=== PATIENT | female | born 1935 ===

== ENCOUNTER 2017-08-23 08:38 | Emergency (ER) | payer MEDICARE, MEDICAID ==
[2017-08-23 08:58] VITALS: TEMP 98.2; O2SAT 98; BMI 23.9
[2017-08-23] MEDS ORDERED: Naproxen 550 mg Tab PO STA (09:36)
[2017-08-23] MEDS ORDERED: Tmp-Smz 800 mg-160 mg DS Tab PO STA (09:36)
[2017-08-23 09:44] VITALS: BP 162/84; PULSE 85; RESP 16
[2017-08-23] MEDS ORDERED: Naproxen 550 mg Tab PO ONE (09:51)
--- NOTE | 2017-08-23 09:55 | C.PDOC ---
History Of Present Illness 81 year old female presents to the ER with a complaint of left inner thigh swelling and pain for the past 2 weeks with discharge. Denies fever or chills. Time Seen by Provider: 08/23/17 09:13 Chief Complaint (Nursing): Female Genitourinary History Per: Patient History/Exam Limitations: no limitations Onset/Duration Of Symptoms: Days Current Symptoms Are (Timing): Still Present Location Of Injury: Left: Thigh Quality Of Symptoms: Painful, Swollen, Draining Recent travel outside of the [place]: No Past Medical History Reviewed: Historical Data, Nursing Documentation, Vital Signs Vital Signs: Last Vital Signs Temp 98.2 F 08/23/17 08:52 Pulse 85 08/23/17 09:43 Resp 16 08/23/17 09:43 BP 162/84 H 08/23/17 09:43 Pulse Ox 98 08/23/17 10:55 - Medical History PMH: HTN Family History: States: Unknown Family Hx - Social History Hx Tobacco Use: No Hx Alcohol Use: No Hx Substance Use: No - Immunization History Hx Tetanus Toxoid Vaccination: Yes Hx Influenza Vaccination: Yes Hx Pneumococcal Vaccination: Yes Review Of Systems Except As Marked, All Systems Reviewed And Found Negative. Skin: Positive for: Other (Left inner thigh swelling, pain, and drainage) Physical Exam - Physical Exam Appears: Non-toxic, Other (Comfortable) Skin: Warm, Dry Head: Atraumatic, Normacephalic Eye(s): bilateral: Normal Inspection Oral Mucosa: Moist Chest: Symmetrical, No Tenderness Cardiovascular: Rhythm Regular Respiratory: Normal Breath Sounds, No Rales, No Rhonchi, No Wheezing Gastrointestinal/Abdominal: Soft, No Tenderness Extremity: Other (Left proximal medial thigh/gluteal area with 2cm fluctuant abscess with pustule and purulent drainage, tenderness and mild erythema) Neurological/Psych: Oriented x3, Normal Speech ED Course And Treatment O2 Sat by Pulse Oximetry: 98 (Room air) Pulse Ox Interpretation: Normal Progress Note: Naproxen, bactrim, and keflex administered. Patient advised to apply warm compress and follow up with PMD or return if symptoms worsen. Disposition Counseled Patient/Family Regarding: Diagnosis, Need For Followup, Rx Given - Disposition Referrals: Shan Pineda MD [Staff Provider] - Disposition: HOME/ ROUTINE Disposition Time: 10:50 Condition: STABLE Additional Instructions: FOLLOW UP WITH YOUR DOCTOR IN 1-2 DAYS USE MEDICATIONS DIRECTED RETURN TO EMERGENCY ROOM IF SYMPTOMS WORSEN SEGUIMIENTO CON ALMAZAN MDICO EN 1-2 BURGESS USE MEDICAMENTOS SEGN LO INDICADO REGRESE AL RAZA DE EMERGENCIA SI LOS SNTOMAS EMPEORAN Prescriptions: Cephalexin [Keflex] 500 mg PO BID #14 capsule Naproxen 375 mg PO BID PRN #20 tablet PRN Reason: pain Sulfamethoxazole/Trimethoprim [Bactrim DS 800 mg-160 mg] 1 tab PO BID #14 tab Instructions: Skin Abscess Forms: [employer] (Icelandic) Print Language: FAROESE - POA Present On Arrival: None - Clinical Impression Clinical Impression: Gluteal abscess - Scribe Statement The provider has reviewed the documentation as recorded by the Scribzari Townsend All medical record entries made by the Scribe were at my direction and personally dictated by me. I have reviewed the chart and agree that the record accurately reflects my personal performance of the history, physical exam, medical decision making, and the department course for this patient. I have also personally directed, reviewed, and agree with the discharge instructions and disposition.
[2017-08-23] MEDS ORDERED: Tmp-Smz 800 mg-160 mg DS Tab ONE (09:58)
[2017-08-23 10:38] LABS: SQUAMOUS EPITHIAL 2 /hpf (0-5); URINE BACTERIA RARE (<OCC); URINE BILIRUBIN NEGATIVE (NEGATIVE); URINE BLOOD NEGATIVE (NEGATIVE); URINE CLARITY Clear (Clear); URINE COLOR Yellow (YELLOW); URINE GLUCOSE (UA) NORMAL (Normal); URINE LEUKOCYTE ESTERASE TRACE Leu/uL (Negative); URINE NITRATE NEGATIVE (NEGATIVE); URINE PROTEIN NEGATIVE (NEGATIVE); URINE UROBILINOGEN NORMAL mg/dL (0.2-1.0)
== END 2017-08-23 11:05 | disposition home or self-care (01) ==
LOC: C.ER 08:38
DX: L02.31 Cutaneous abscess of buttock (principal)

== ENCOUNTER 2018-02-10 16:23 | Emergency (ER) | payer MEDICARE, MEDICAID ==
[2018-02-10 16:30] VITALS: BMI 26.4
[2018-02-10 16:32] VITALS: RESP 18; O2SAT 98
[2018-02-10] MEDS ORDERED: Sodium Chloride 0.9% 1,000 ML IV ONE (18:24)
[2018-02-10] MEDS ORDERED: Sodium Chloride 0.9% 1,000 ML ONE (18:35)
[2018-02-10 18:51] LABS: BASO % 0.6 % (0.0-2.0); EOS # 0.1 K/uL (0.0-0.7); EOS % 1.1 % (0.0-4.0); HEMOGLOBIN 13.3 g/dL (11.0-16.0); LYMPH # 2.1 K/uL (1.0-4.3); LYMPH % 28.1 % (20.0-40.0); MEAN CELL VOLUME 85.3 fL (81.0-99.0); MEAN CORPUSCULAR HEMOGLOBIN 29.2 pg (27.0-31.0); MEAN CORPUSCULAR HGB CONC 34.2 g/dL (33.0-37.0); MEAN PLATELET VOLUME 7.7 fL (7.2-11.7); MONO # 0.5 K/uL (0.0-0.8); MONO % 6.3 % (0.0-10.0); NEUT # 4.8 K/uL (1.8-7.0); NEUT % 63.9 % (50.0-75.0); NRBC % 0.1 % (0.0-2.0); RBC 4.56 Mil/uL (3.80-5.20); RED CELL DISTRIBUTION WIDTH 13.6 % (11.5-14.5); WHITE BLOOD COUNT 7.5 K/uL (4.8-10.8)
[2018-02-10 18:53] LABS: SQUAMOUS EPITHIAL 1 /hpf (0-5); URINE BILIRUBIN NEGATIVE (NEGATIVE); URINE BLOOD NEGATIVE (NEGATIVE); URINE CLARITY Clear (Clear); URINE COLOR Straw (YELLOW); URINE GLUCOSE (UA) NORMAL (Normal); URINE PROTEIN NEGATIVE (NEGATIVE); URINE UROBILINOGEN NORMAL mg/dL (0.2-1.0)
[2018-02-10 19:01] LABS: URINE LEUKOCYTE ESTERASE TRACE Leu/uL (Negative)
[2018-02-10 19:03] LABS: ALB/GLOB RATIO 1.3 (1.0-2.1); ALBUMIN 4.1 g/dL (3.5-5.0); ALT/SGPT 32 U/L (9-52); AST/SGOT 21 U/L (14-36); BLOOD UREA NITROGEN 14 mg/dL (7-17); CALCIUM 9.2 mg/dl (8.6-10.4); GFR AFRICAN-AMERICAN > 60; GFR NON-AFRICAN AMERICAN > 60; LIPASE 410 U/L (23-300)
--- NOTE | 2018-02-10 20:19 | C.PDOC ---
History Of Present Illness 82yo female, comes to ER with complaints of upper abdominal pain since 5 days. She states initially she had 3-4 episodes of vomiting but denies any currentl. She also denies any fever, chills, dysuria, hematuria or bloody stools. Patient does report a mild decreased PO intake. Time Seen by Provider: 02/10/18 18:15 Chief Complaint (Nursing): Abdominal Pain History Per: Patient History/Exam Limitations: no limitations Onset/Duration Of Symptoms: Days Current Symptoms Are (Timing): Still Present Location Of Pain/Discomfort: RUQ, Epigastric, LUQ Quality Of Discomfort: "Pain" Past Medical History Reviewed: Historical Data, Nursing Documentation, Vital Signs Vital Signs: Last Vital Signs Temp 97.4 F L 02/10/18 21:33 Pulse 72 02/10/18 21:33 Resp 18 02/10/18 21:33 BP 160/70 H 02/10/18 21:33 Pulse Ox 98 02/10/18 21:33 - Medical History PMH: HTN Surgical History: No Surg Hx Family History: States: Unknown Family Hx - Social History Hx Tobacco Use: No Hx Alcohol Use: No Hx Substance Use: No - Immunization History Hx Tetanus Toxoid Vaccination: No Hx Influenza Vaccination: No Hx Pneumococcal Vaccination: No Review Of Systems Except As Marked, All Systems Reviewed And Found Negative. Constitutional: Negative for: Fever, Chills Gastrointestinal: Positive for: Abdominal Pain. Negative for: Hematochezia Genitourinary: Negative for: Dysuria, Frequency, Hematuria Musculoskeletal: Negative for: Back Pain Physical Exam - Physical Exam Appears: Non-toxic, No Acute Distress Skin: Normal Color, Warm, Dry Head: Atraumatic, Normacephalic Eye(s): bilateral: Normal Inspection Neck: Normal ROM, Supple Chest: Symmetrical Cardiovascular: Rhythm Regular Respiratory: Normal Breath Sounds Gastrointestinal/Abdominal: Soft, Tenderness (minimal diffuse abdominal tenderness), No Guarding, No Rebound Back: Normal Inspection, No Paraspinal Tenderness Extremity: Normal ROM Neurological/Psych: Oriented x3 ED Course And Treatment - Laboratory Results Result Diagrams: 02/10/18 18:47 02/10/18 18:47 O2 Sat by Pulse Oximetry: 98 (RA) Pulse Ox Interpretation: Normal Medical Decision Making Medical Decision Making: Plan: -- Labs -- CT Abdomen/Pelvis w/o contrast -- Pepcid 20mg IV -- IV Fluids -- Zofran 8mg IV Disposition - Disposition Referrals: Shan Pineda MD [Staff Provider] - Disposition: HOME/ ROUTINE Disposition Time: 20:40 Condition: IMPROVED Additional Instructions: ANASTASIA TANNER, thank you for letting us take care of you today. The emergency medical care you received today was directed at your acute symptoms. If you were prescribed any medication, please fill it and take as directed. It may take several days for your symptoms to resolve. Return to the Emergency Department if your symptoms worsen, do not improve, or if you have any other problems. Please contact your doctor or call one of the physicians/clinics you have been referred to that are listed on the Patient Visit Information form that is included in your discharge packet. Bring any paperwork you were given at discharge with you along with any medications you are taking to your follow up visit. Our treatment cannot replace ongoing medical care by a primary care provider outside of the emergency department. Thank you for allowing the [facility] team to be part of your care today. Follow up with your primary care doctor in 2-3 days for re-evaluation and further management. ANASTASIA TANNER, anthony por dejarnos atenderlo hoy. La atencin mdica de emergencia que recibi hoy estaba dirigida a sandhya sntomas agudos. Si le prescribieron algn medicamento, llnelo y tome segn las indicaciones. Sandhya s ntomas pueden tardar varios hagen en resolverse. Regrese al Departamento de Emergencia si sandhya sntomas empeoran, no mejoran o si tiene algn otro problema. Comunquese con pleitez mdico o llame a ginger de los mdicos / clnicas a los que quintanilla sido referido que figura en el formulario de Informacin de visita del paciente que se incluye en pleitez paquete de norah. Traiga todos los documentos que recibi al momento del norah junto con los medicamentos que est tomando en pleitez visita de seguimiento. Nuestro tratamiento no puede reemplazar la atencin mdica en curso por un proveedor de atencin primaria fuera del departamento de emergencia. Anthony por permitir que el equipo de [facility] sea parte de pleitez cuidado hoy. Shaun un seguimiento con pleitez mdico de atencin primaria en 2-3 hagen para manohar nueva evaluacin y administracin adicional. Prescriptions: Ranitidine HCl [Zantac] 150 mg PO BID #14 tablet Instructions: Acute Abdomen (Belly Pain), Adult (DC) Forms: Gen Discharge Inst Maori Print Language: SAO TOMEAN - Clinical Impression Clinical Impression: Abdominal pain - Scribe Statement The provider has reviewed the documentation as recorded by the Scribe Dot Smith Provider Attestation: All medical record entries made by the Scribe were at my direction and personally dictated by me. I have reviewed the chart and agree that the record accurately reflects my personal performance of the history, physical exam, medical decision making, and the department course for this patient. I have also personally directed, reviewed, and agree with the discharge instructions and disposition.
[2018-02-10 21:34] VITALS: BP 160/70; PULSE 72; TEMP 97.4
--- NOTE | 2018-02-11 15:40 | CT ---
Date of service: 02/10/2018 PROCEDURE: CT Abdomen and Pelvis without intravenous contrast HISTORY: upper abdominal pain COMPARISON: Comparison is made to the previous study dated 10/10/2015 TECHNIQUE: Axial and reformatted coronal and sagittal CT images of the abdomen and pelvis were obtained without IV or oral contrast administration. Contrast dose: 0 Radiation dose: Total exam DLP = 344.65 mGy-cm. This CT exam was performed using one or more of the following dose reduction techniques: Automated exposure control, adjustment of the mA and/or kV according to patient size, and/or use of iterative reconstruction technique. FINDINGS: LOWER THORAX: Unremarkable. LIVER: Unremarkable. No gross lesion or ductal dilatation. GALLBLADDER AND BILE DUCTS: The gallbladder is not visualized. PANCREAS: Unremarkable. No gross lesion or ductal dilatation. SPLEEN: Unremarkable. ADRENALS: Unremarkable. No mass. KIDNEYS AND URETERS: No evidence of nephrolithiasis. Mildly dilated collecting system of both kidneys noted could be due to mildly distended urinary bladder. No evidence of ureteral stone VASCULATURE: Unremarkable. No aortic aneurysm. BOWEL: Unremarkable. No obstruction. No gross mural thickening. APPENDIX: Unremarkable. Normal appendix. PERITONEUM: Unremarkable. No free fluid. No free air. LYMPH NODES: Unremarkable. No enlarged lymph nodes. BLADDER: Unremarkable. REPRODUCTIVE: Unremarkable. BONES: No acute fracture. OTHER FINDINGS: None. IMPRESSION: No evidence of nephrolithiasis or significant hydronephrosis. Mildly dilated collecting system of the kidneys noted could be due to distended urinary bladder. No CT evidence of acute pathology otherwise noted in the abdomen and pelvis. Preliminary report was submitted by [facility] .
--- NOTE | 2018-02-14 17:00 | CARD ---
APPROVED REPORT Date of service: 02/10/2018 EKG Measurement Heart [id number] <Conclusion> Normal sinus rhythm Poor R wave progression- Appears positional Low voltage in precordial leads Abnormal ECG Please repeat
== END 2018-02-10 21:35 | disposition home or self-care (01) ==
LOC: C.ER 16:23
DX: R10.11 Right upper quadrant pain (principal); R10.12 Left upper quadrant pain; I10 Essential (primary) hypertension
CPT/HCPCS: 74176; 80053; 81001; 83690; 84484; 85025; 87086; 93005; 96374; 96375; 99284; J2405; J7030

== ENCOUNTER 2018-05-18 06:18 | Day surgery (SDC) | payer MEDICARE, MEDICAID ==
[2018-05-18] MEDS ORDERED: Propofol 10 mg/ml Inj (20 ML) ONE (08:05)
[2018-05-18] MEDS ORDERED: Lactated Ringer's 1,000 ML IV ONE (08:10)
--- NOTE | 2018-05-18 08:22 | CP.SDSHP ---
Same Day Surgery H & P - History Proposed Procedure: endoscopy and bioppsy Pre-Op Diagnosis: epig pain, gastritis - Previous Medical/Surgical History Endocrine/Metabolic: Diabetes Comments: TIA - Allergies Allergies: Allergies almond Allergy (Verified 05/18/18 07:26) SHORTNESS OF BREATH ITCHING, SOB iodine Allergy (Verified 05/18/18 07:26) SHORTNESS OF BREATH ITCHING, SOB - Physical Exam Vital Signs: Vital Signs 05/18/18 06:45 Temperature 97.8 F Pulse Rate 80 Respiratory 20 Rate Blood Pressure 186/91 H O2 Sat by Pulse 100 Oximetry Mental Status: Alert & Oriented x3 Neuro: WNL Heart: WNL Lungs: WNL GI: WNL - {Optional Preform as Required} Abdomen: WNL - Impression Impression: GASTRITIS Pt. Evaluated Today:Candidate for Anesthesia & Procedure: Yes - Date & Time Date: 05/18/18 Time: 08:00 Short Stay Discharge - Short Stay Discharge Admitting Diagnosis/Reason for Visit: EPIGASTRIC PAIN Disposition: HOME/ ROUTINE Referrals: Shan Pineda MD [Primary Care Provider] -
[2018-05-18 08:40] VITALS: TEMP 98.4
[2018-05-18 08:53] VITALS: O2SAT 100
[2018-05-18 09:20] VITALS: RESP 14
[2018-05-18 09:53] VITALS: BP 160/67; PULSE 70
== END 2018-05-18 09:50 | disposition home or self-care (01) ==
LOC: C.ENDO 06:18
PROVIDERS: ATTEND Internal Medicine Gastroenterology
DX: R10.84 Generalized abdominal pain (principal); K44.9 Diaphragmatic hernia without obstruction or gangrene; K29.70 Gastritis, unspecified, without bleeding
CPT/HCPCS: 43239; 82948; 88305; J2704; J7120